=== PATIENT | female | born 1955 | race Caucasian/White ===

== ENCOUNTER 2016-11-06 15:45 | Emergency (ER) | payer OTHER ==
[~2016-11-06] VITALS: Ht 160 cm; Wt 73.5 kg
[2016-11-06 17:10] VITALS: BP 134/76
== END 2016-11-06 17:10 | disposition home or self-care (01) ==
LOC: ED 15:45
DX: S81.811A Laceration without foreign body, right lower leg, initial encounter (principal); E78.00 Pure hypercholesterolemia, unspecified; I10 Essential (primary) hypertension; E11.9 Type 2 diabetes mellitus without complications; Z79.4 Long term (current) use of insulin; X58.XXXA Exposure to other specified factors, initial encounter; Y93.89 Activity, other specified; Y99.8 Other external cause status; Y92.89 Other specified places as the place of occurrence of the external cause
CPT/HCPCS: 90715

== ENCOUNTER 2016-11-08 08:15 | Emergency (ER) | payer OTHER ==
[2016-11-08 09:35] VITALS: BP 125/66
== END 2016-11-08 09:35 | disposition home or self-care (01) ==
LOC: ED 08:15
DX: S81.811D Laceration without foreign body, right lower leg, subsequent encounter (principal); E11.9 Type 2 diabetes mellitus without complications; I10 Essential (primary) hypertension; X58.XXXD Exposure to other specified factors, subsequent encounter; Y99.8 Other external cause status; Y92.89 Other specified places as the place of occurrence of the external cause

== ENCOUNTER 2016-11-15 09:33 | Emergency (ER) | payer OTHER ==
[~2016-11-15] VITALS: Ht 160 cm; Wt 73.2 kg
[2016-11-15 10:25] VITALS: BP 136/68
== END 2016-11-15 10:25 | disposition home or self-care (01) ==
LOC: ED 09:33
DX: Z48.01 Encounter for change or removal of surgical wound dressing (principal); E11.9 Type 2 diabetes mellitus without complications; I10 Essential (primary) hypertension